=== PATIENT | male | born 1985 | race Caucasian/White ===

== ENCOUNTER 2023-11-17 16:53 | Emergency (ER) | payer OTHER, SELFPAY ==
--- NOTE | ~2023-11-17 | XR_ITS ---
EXAMINATION: XR chest 2V Exam Date/Time: 11/17/2023 17:18 CDT HISTORY: lower left chest pain X 3 days, denies health hx Comparison: None. RESULT: Lines, tubes, and devices: None. Lungs and pleura: Clear. Cardiomediastinal silhouette: Normal. Other: No acute osseous or upper abdominal finding. IMPRESSION: No acute cardiopulmonary process. Reviewed, dictated and finalized at location K.
--- NOTE | 2023-11-17 16:54 | ECG_ITS ---
Measurements Intervals [place] Rate: 76 P: 82 NH: 166 QRS: 85 QRSD: 92 T: 70 QT: 345 QTc: 389 Interpretive Statements SINUS RHYTHM MINIMAL Q WAVES- ANTEROLAT/INF LEADS BASELINE ARTIFACT- I, III, AVR, AVL BORDERLINE ECG NO PREVIOUS ECG AVAILABLE FOR COMPARISON Electronically Signed On 11-17-2023 17:30:45 CDT by Jose Ascencio D.O.
[2023-11-17 17:24] VITALS: BP 158/102; PULSE 90; RESP 18; TEMP 36.7; O2SAT 100
[2023-11-17 17:40] LABS: Basophils Absolute Auto 0.1 K/mm3 (0.0-0.1); Eosinophils Absolute Auto 0.1 K/mm3 (0-0.3); Eosinophils Percent Auto 0.5 % (0-4.4); Hematocrit 44.7 % (42.0-52.0); Hemoglobin 14.8 g/dL (14.0-18.0); Immature Granulocyte Absolute 0.02 K/mm3 (0.00-0.031); Immature Granulocyte Percent A 0.2 % (0-0.5); Lymphocytes Absolute Auto 2.76 K/mm3 (0.9-3.2); Lymphocytes Percent Auto 24.2 % (18.3-44.2); Mean Corpuscular HGB Conc 33.1 g/dl (32-36); Mean Corpuscular Hemoglobin 30.7 pg (26-34); Mean Corpuscular Volume 92.7 fl (80-100); Mean Platelet Volume 10.6 fl (7.4-10.4); Monocytes Absolute Auto 0.7 K/mm3 (0.1-0.6); Neutrophils Absolute Auto 7.8 K/mm3 (1.3-6.7); Neutrophils Percent Auto 68.1 % (45.5-73.1); Platelet Count Result 281 k/mm3 (150-375); Red Blood Count 4.82 M/mm3 (4.6-6.20); Red Cell Distribution Width 12.8 % (11.5-14.5); White Blood Count 11.4 K/mm3 (4.5-10.0)
[2023-11-17 17:50] LABS: Prothrombin Time 13.6 Seconds (11.1-14.7)
[2023-11-17 17:51] LABS: Partial Thromboplastin Time 25.7 Seconds (22.3-36.8)
[2023-11-17 17:55] LABS: Alanine Aminotransferase 22 U/L (6-50); Albumin Level 4.7 g/dL (3.5-5.1); Alkaline Phosphatase 55 U/L (38-126); Anion Gap 5 mmol/L (8-16); Aspartate Amino Transferase 33 U/L (17-59); Bilirubin,Total 0.4 mg/dL (0.2-1.3); Blood Urea Nitrogen 10 mg/dL (9-20); Calcium 9.5 mg/dL (8.4-10.2); Carbon Dioxide 29 mmol/L (22-30); Chloride 103 mmol/L (98-107); Estimated Glomerular Filt Rate > 60; Glucose 88 mg/dL (65-110); Lipase 110 U/L (23-300); Potassium 3.9 mmol/L (3.4-5.0); Sodium 137 mmol/L (137-145)
[2023-11-17 18:07] LABS: Troponin I < 0.012 ng/mL (0.000-0.034)
--- NOTE | 2023-11-17 18:23 | ED.GENADULT ---
HPI - General Adult General Chief complaint: Chest Pain Stated complaint: chest pain Time Seen by Provider: 11/17/23 18:24 Focused HPI: Rafael Summers is a 38 y/o male who presents wt reports of having left sided chest pain that started 3 days ago, pain has been constant. position can make his pain worse. He feels that maybe his left side of his chest is bigger, he hasn't found anything to make his pain better. Denies SOB/ denies any known cardiac history GENERAL: Well-appearing, well-nourished, and in no acute distress. HEAD: Normocephalic, atraumatic. CHEST: Clear to auscultation. ?No respiratory distress. HEART: Regular rate and rhythm.? NEURO: ?Alert and oriented x3. Patient screened in triage and initial orders placed.? ?Additional care and disposition to be based upon?diagnostic testing and treatment. Course Vital Signs Vital signs: Vital Signs Temperature 36.7 C 11/17/23 17:24 Pulse Rate 90 11/17/23 17:24 Respiratory Rate 18 11/17/23 17:24 Blood Pressure 158/102 H 11/17/23 17:24 Pulse Oximetry 100 11/17/23 17:24 Oxygen Delivery Room Air 11/17/23 17:24 Temperature 36.7 C 11/17/23 17:24 Pulse Rate 90 11/17/23 17:24 Respiratory Rate 18 11/17/23 17:24 Blood Pressure 158/102 H 11/17/23 17:24 Pulse Oximetry 100 11/17/23 17:24 Oxygen Delivery Room Air 11/17/23 17:24 Medical Decision Making Vital Signs Vital Signs: Vital Signs Temperature 36.7 C 11/17/23 17:24 Pulse Rate 90 11/17/23 17:24 Respiratory Rate 18 11/17/23 17:24 Blood Pressure 158/102 H 11/17/23 17:24 Pulse Oximetry 100 11/17/23 17:24 Oxygen Delivery Room Air 11/17/23 17:24 Temperature 36.7 C 11/17/23 17:24 Pulse Rate 90 11/17/23 17:24 Respiratory Rate 18 11/17/23 17:24 Blood Pressure 158/102 H 11/17/23 17:24 Pulse Oximetry 100 11/17/23 17:24 Oxygen Delivery Room Air 11/17/23 17:24 Lab Data 11/17/23 17:32 11/17/23 17:32 Labs: Lab Results 11/17/23 Range/Units 17:32 WBC 11.4 H (4.5-10.0) K/mm3 RBC 4.82 (4.6-6.20) M/mm3 Hgb 14.8 (14.0-18.0) g/dL Hct 44.7 (42.0-52.0) % MCV 92.7 (80-100) fl MCH 30.7 (26-34) pg MCHC 33.1 (32-36) g/dl RDW 12.8 (11.5-14.5) % Plt Count 281 (150-375) k/mm3 MPV 10.6 H (7.4-10.4) fl Immature Gran % (Auto) 0.2 (0-0.5) % Neut % (Auto) 68.1 (45.5-73.1) % Lymph % (Auto) 24.2 (18.3-44.2) % [place] % (Auto) 6.0 (2.6-8.5) % Eos % (Auto) 0.5 (0-4.4) % Baso % (Auto) 1.0 (0.2-1.2) % Lymph # (Auto) 2.76 (0.9-3.2) K/mm3 [place] # (Auto) 0.7 H (0.1-0.6) K/mm3 Eos # (Auto) 0.1 (0-0.3) K/mm3 Baso # (Auto) 0.1 (0.0-0.1) K/mm3 Abs Immat Gran (auto) 0.02 (0.00-0.031) K/mm3 Absolute Neuts (auto) 7.8 H (1.3-6.7) K/mm3 Absolute Nucleated RBC 0.000 (0.0-0.012) K/mm3 Nucleated RBC % 0.0 (0.0-0.2) % PT 13.6 (11.1-14.7) Seconds INR 1.0 APTT 25.7 (22.3-36.8) Seconds Sodium 137 (137-145) mmol/L Potassium 3.9 (3.4-5.0) mmol/L Chloride 103 (98-107) mmol/L Carbon Dioxide 29 (22-30) mmol/L Anion Gap 5 L (8-16) mmol/L BUN 10 (9-20) mg/dL Creatinine 0.60 L (0.7-1.3) mg/dL Estim Creat Clear Calc Not Reportable Estimated GFR > 60 (59 - ) Glucose 88 (65-110) mg/dL Calcium 9.5 (8.4-10.2) mg/dL Total Bilirubin 0.4 (0.2-1.3) mg/dL AST 33 (17-59) U/L ALT 22 (6-50) U/L Alkaline Phosphatase 55 (38-126) U/L Troponin I < 0.012 (0.000-0.034) ng/mL Total Protein 8.0 (6.3-8.2) g/dL Albumin 4.7 (3.5-5.1) g/dL Lipase 110 (23-300) U/L Discharge Plan Discharge Clinical Impression: Chest pain Qualifiers: Chest pain type: unspecified Qualified Code(s): R07.9 - Chest pain, unspecified Patient Disposition: [facility] After Seen by Prov Condition: Stable Follow-up/Referrals: PHYSICIAN NOT ON STAFF,NONSTAFF [Primary Care Provider] -
--- NOTE | 2023-11-17 21:09 | PC.NURSE ---
Patient to triage desk stating he would like to leave. Patient states he does not have a PCP to follow up with and does not have [facility] portal. Patient asked if he could be called with results and this RN explained to patient that he cannot be called and would have to wait for the doctor to see him when he gets to a room to explain his results. Patient asked if he could leave and come back and this RN explained that he would have to have a new visit. Patient given information on portal and states he will think about whether he would like to stay to be seen or leave.
--- NOTE | 2023-11-17 21:38 | PC.NURSE ---
Patient seen walking out the door.
== END 2023-11-17 22:51 | disposition left against medical advice (07) ==
PROVIDERS: Emergency Medicine; Emergency Provider Nurse Practitioner Family
DX: R07.9 Chest pain, unspecified (principal); R94.31 Abnormal electrocardiogram [ECG] [EKG]
CPT/HCPCS: 36415; 71046; 80053; 83690; 84484; 85025; 85610; 85730; 93005; 99284

== ENCOUNTER 2025-03-04 09:00 | Emergency (ER) | payer OTHER, SELFPAY ==
--- OUTSIDE RECORDS SUMMARY | 2025-03-04 09:01 | XMS_ITS | Clinical Summary ---
Author Organization [address] Address [address] [place] [id number] Care Team Providers Care Quick Service Technician Name Role Phone Unknown, Notinfile Primary Care Provider Unavail able Allergies No known active allergies Medications No known medications Active Problems No known active problems Social History Tobacco Use Types Packs/Day Years Used Date Smoking Tobacco: Never Assessed Sex and Gender Information Value Date Recorded Sex Assigned at Not on file Legal Sex Male 12:45 PM CDT Gender Identity Not on file Sexual Orientation Not on file Obstetrics History Last Filed Vital Signs Vital Sign Reading Time Taken Comments Blood Pressure 130/82 11/17/2023 1:56 PM CDT Pulse 97 11/17/2023 1:56 PM CDT Temperature 36.8 C (98.2 F) 11/17/2023 1:56 PM CDT Respiratory Rate 14 11/17/2023 1:56 PM CDT Oxygen Saturation 100% 11/17/2023 1:56 PM CDT Inhaled Oxygen Concentration - - Weight 76.7 kg (169 lb) 11/17/2023 1:56 PM CDT Height 190.5 cm (6' 3) 11/17/2023 1:56 PM CDT Body Mass Index 21.12 11/17/2023 1:56 PM CDT Plan of Treatment Health Maintenance Due Date Last Done Comments Depression Screening 1984 Hepatitis C Screening 1984 DTaP/Tdap/Td Vaccine (1 - Tdap) 1995 Varicella Vaccines (1 of 2 - 13+ 2-dose series) 1997 Hepatitis B Screening 2002 Regular Well Visit/Exam 18-64 2002 Influenza Vaccine (Season Ended) 2025 HPV Vaccines Aged Out No longer eligi ble based on patient's age to complete this topic Pneumococcal vaccine <65 Aged Out No longer eligible based on patient's age to complete this topic Insurance [facility] CHOICE PLUS Care Teams Quick Service Technician Relationship Specialty Start Date End Date Unknown, Notinfile PCP - General 11/17/23
--- OUTSIDE RECORDS SUMMARY | 2025-03-04 09:01 | XMS_ITS | Referral Summary ---
Author Organization [address] Address [address] [place] [phone] Care Team Providers Care Varnish Blender Name Role Phone Unknown, Notinfile Primary Care [...] on file Sexual Orientation Not on file Last Filed Vital Signs Vital Sign Reading [...] 11/17/2023 1:56 PM CDT Plan of Treatment Not on file Insurance [facility] CHOICE PLUS Care Teams Varnish Blender Relationship Specialty Start Date End Date Unknown, Notinfile PCP - General 11/17/23
[2025-03-04 09:02] VITALS: BP 148/108; PULSE 100; RESP 16; TEMP 36.6; O2SAT 100
--- NOTE | 2025-03-04 10:01 | ED.GENADULT ---
HPI - General Adult General Chief complaint: Dental/Oral Stated complaint: DENTAL PAIN Time Seen by Provider: 03/04/25 09:05 History of Present Illness HPI narrative: Patient 39-year-old gentleman presents emergency department chief complaint of swelling in the right upper gum area. The patient states has been going on for approximately 1 week patient states got worse over the last 2 days reports he has some swelling the right side of his face patient states that there is a large area that is swollen and tender inside his upper gums Related Data Allergies Allergy/AdvReac Type Severity Reaction Status Date / Time No Known Allergies Allergy Verified 03/04/25 09:06 Review of Systems Review of Systems: A 10 system review of systems was completed on the patient and is negative except for what is stated in the HPI. Nursing and ancillary documentation was reviewed. Exam Narrative: GENERAL: Well-appearing, well-nourished, and in no acute distress. HEAD: Normocephalic, atraumatic. EYES: PERRLA and EOMI. ENT: Nares clear, no rhinorrhea or epistaxis. Mucous membranes moist. There is swelling present to the right upper gum and the axillary area by the molars it is tender fluctuant NECK: Supple. CHEST: Clear to auscultation. No respiratory distress. HEART: Regular rate and rhythm. No murmur heard. Normal peripheral pulses. ABDOMEN: Soft, nontender, nondistended, normal active bowel sounds. EXTREMITIES: Normal range of motion. No edema. SKIN: Warm, dry, no rash. NEURO: No focal deficits. Alert and oriented x3. PSYCH: Normal mood and affect. Course Vital Signs Vital signs: Vital Signs Temperature 36.6 C 03/04/25 09:02 Pulse Rate 100 03/04/25 09:02 Respiratory Rate 16 03/04/25 09:02 Blood Pressure 148/108 H 03/04/25 09:02 Pulse Oximetry 100 03/04/25 09:02 Oxygen Delivery Room Air 03/04/25 09:02 Temperature 36.6 C 03/04/25 09:02 Pulse Rate 100 03/04/25 09:02 Respiratory Rate 16 03/04/25 09:02 Blood Pressure 148/108 H 03/04/25 09:02 Pulse Oximetry 100 03/04/25 09:02 Oxygen Delivery Room Air 03/04/25 09:02 Procedures Abscess I/D oral: Date of Incision: 03/04/25 Time of Incision: 10:03 Side (if applicable): right Local Anesthetic: lidocaine 1% Amount of anesthesia used (mL): 3 Technique: incised with #11 blade Amount of fluid expressed (mL): 3 Irrigation: No Packing used?: none I&D Results: Pus and Blood Medical Decision Making Vital Signs Vital Signs: Vital Signs Temperature 36.6 C 03/04/25 09:02 Pulse Rate 100 03/04/25 09:02 Respiratory Rate 16 03/04/25 09:02 Blood Pressure 148/108 H 03/04/25 09:02 Pulse Oximetry 100 03/04/25 09:02 Oxygen Delivery Room Air 03/04/25 09:02 Temperature 36.6 C 03/04/25 09:02 Pulse Rate 100 03/04/25 09:02 Respiratory Rate 16 03/04/25 09:02 Blood Pressure 148/108 H 03/04/25 09:02 Pulse Oximetry 100 03/04/25 09:02 Oxygen Delivery Room Air 03/04/25 09:02 Discharge Plan Discharge Clinical Impression: Dental abscess Patient Disposition: Home Condition: Stable Instructions: Antibiotic Form, Dental Abscess (ED) Additional Instructions: Please follow-up with a dentist as soon as possible Patient Language: [place] Prescriptions: New amoxicillin-pot clavulanate 875-125 mg tablet 1 tablet PO Q12H 10 Days Qty: 20 0RF hydrocodone-acetaminophen 5-325 mg tablet 1 tablet PO Q6H PRN (Reason: pain) 3 Days Qty: 12 0RF Follow-up/Referrals: PHYSICIAN,[employer] [Primary Care Provider] - Dev Schmitt MD [Physician] - Stand Alone Forms: Work/School Release IP Time of Disposition: :
[2025-03-04] MEDS: LIDOCAINE 1% LOCAL INJ 10 ML VIAL (10:03)
[2025-03-04] MEDS: HYDROcodone/acetaminophen (*CRX) 5-325 MG TABLET 1 TAB PO (10:11)
== END 2025-03-04 10:16 | disposition home or self-care (01) ==
PROVIDERS: Emergency Provider Emergency Medicine
DX: K04.7 Periapical abscess without sinus (principal)
CPT/HCPCS: 41800; 64999; 99283; A9270; J2003